=== PATIENT | male | born 1935 | race Caucasian/White ===

== ENCOUNTER → 2017-07-17 | Outpatient (CLI) | payer OTHER | LOC: BMCIMAGING 13:45 | PROVIDERS: ATTEND Emergency Medicine | DX: R51 Headache (principal) ==

== ENCOUNTER 2017-08-29 04:48 | Inpatient (IN) | payer OTHER ==
--- NOTE | 2017-08-29 04:51 | EDPHY ---
H & P Time Seen by Provider: 08/29/17 05:10 HPI/ROS: HPI CHIEF COMPLAINT: Epistaxis HISTORY OF PRESENT ILLNESS: This patient 82-year-old male who was recently went to [facility] evening for epistaxis. He recently had nasal surgery by Dr. Jonny Sylvester. He went to [facility] where they placed a packing. However they had a great deal difficulty controlling his epistaxis. Due to his previous surgery done by ENT here [facility] the patient left [facility], and came by private vehicle to [facility]. He states he started bleeding earlier tonight out of the left Monteiro. And somewhat of the right Monteiro. He had A/P packing placed at outside hospital the left Nare. He continued to bleed at the outside hospital and contacted ENT and they referred him here to our emergency room. Upon arrival he has noted be hemodynamically stable. The patient reports that he lost lot of blood. Intermittently he spits up a clotted blood clot in the posterior pharynx. Patient denies being on any blood thinners. Denies nasal trauma. He states that he had turbinate reduction 1 week ago. Past Medical History: Denies significant medical history Past Surgical History: Recent nasal surgery Social History: Denies drugs alcohol tobacco. Family History: Noncontributory ROS REVIEW OF SYSTEMS: A comprehensive 10 point review of systems is otherwise negative aside from elements mentioned in the history of present illness. Exam Constitutional appears well nontoxic no acute distress triage nursing summary reviewed, vital signs reviewed, awake/alert. Vital signs noted at triage to be hypertensive. Eyes normal conjunctivae and sclera, EOMI, PERRLA. HENT NOSE: Left nose is packed with A/P rhino rocket, on the right Nare: dry blood present, no significant active bleed posterior pharynx there is blood in the posterior pharynx but I do not appreciate any active bleed. moist mucus membranes, no epistaxis, neck supple/ no meningismus, no raccoon eyes. Respiratory clear to auscultation bilaterally, normal breath sounds, no respiratory distress, no wheezing. Cardiovascular rate normal, regular rhythm, no murmur, no edema, distal pulses normal. Gastrointestinal soft, non-tender, no rebound, no guarding, normal bowel sounds, no distension, no pulsatile mass. Genitourinary no CVA tenderness. Musculoskeletal no midline vertebral tenderness, full range of motion, no calf swelling, no tenderness of extremities, no meningismus, good pulses, neurovascularly intact. Skin pink, warm, & dry, no rash, skin atraumatic. Neurologic awake, alert and oriented x 3, AAOx3, moves all 4 extremities equally, motor intact, sensory intact, CN II-XII intact, normal cerebellar, normal vision, normal speech. Psychiatric normal mood/affect. Heme/Lymph/Immune no lymphadenopathy. Differential Diagnosis: Includes but is not limited to in a particular order anterior nose bleed, posterior nosebleed, anterior and posterior nosebleed, nose bleed from recent surgery Medical Decision Making: Plan for this patient will place another packing in his right Monteiro. And observe closely. Check basic blood work H&H. Gentle IV hydration and close monitoring. Will additionally touch base with ENT. Re-evaluation: 0540: Spoke with SHERRON, on-call for ENT. Recommends second Rocket packing. Observation. 0545: I placed a 2nd hacking AP rhino rocket in the right Monteiro. He tolerated this very well. Is secured down. Additionally I ordered Augmentin 875 mg p.o. As he has both rhino rockets in place. Additionally he is receiving gentle IV fluid hydration. I have also ordered him 0.5 mg IV Dilaudid for pain control. He does have a codeine allergy but states he has had IV narcotics in the past. Additionally Zofran for nausea as needed. This patient will be admitted to the hospitalist service for bilateral epistaxis bilateral rhino rockets in place. Reason for admission bilateral rhino rockets in the setting of epistaxis in the setting of recent nasal surgery, the setting of him being 82 years old and having bilateral packing in becoming airway issue. Nosebleed Procedure: The patient had a 7.5 anterior/posterior rhino rocket placed into the right Monteiro. This was inflated with 8 cc of air. He tolerated this very well with security to his cheek. He did put counter pressure on his left anterior packing. He appears at this time to have good hemostasis. He is resting comfortably. No acute distress. After was applied to squirts to the right near prior to the Afrin-soaked rhino rocket. [id number]: Spoke with Tiffanie Banks, will plan on seeing today, [place] for Dr. Jonny Sylvester. Source: Patient, Old records, Other Constitutional: Initial Vital Signs Temperature (C) 36.8 C 08/29/17 04:55 Heart Rate 117 H 08/29/17 04:55 Respiratory Rate 18 08/29/17 04:55 Blood Pressure 179/95 H 08/29/17 04:55 O2 Sat (%) 91 L 08/29/17 04:55 O2 Delivery Mode Room Air Allergies/Adverse Reactions: codeine Allergy (Verified 08/29/17 04:54) Home Medications: Medication Instructions Recorded Aspirin [Aspirin 81mg (*)] 81 mg PO DAILY 08/29/17 Ibuprofen [Motrin (*)] 200 mg PO DAILY PRN 08/29/17 Medical Decision Making - Data Points Laboratory Results: Laboratory Results 08/29/17 05:10 08/29/17 05:10 Medications Given: Amoxicillin/Clavulanate Potassium (Augmentin 875mg) 875 mg PO BID JAYLA PRN Reason: Protocol Stop: 09/28/17 17:59 Last Admin: 08/29/17 20:21 Dose: 875 mg Discontinued Medications Amoxicillin/Clavulanate Potassium (Augmentin 875mg) 875 mg PO EDNOW ONE PRN Reason: Protocol Stop: 08/29/17 05:41 Last Admin: 08/29/17 05:50 Dose: 875 mg Benzocaine (Hurricaine Carnegie) 1 each MM EDNOW ONE Stop: 08/29/17 05:32 Last Admin: 08/29/17 05:33 Dose: 1 each Hydromorphone HCl (Dilaudid) 0.5 mg IVP EDNOW ONE Stop: 08/29/17 05:45 Last Admin: 08/29/17 05:51 Dose: 0.5 mg Sodium Chloride (Ns) 1,000 mls @ 0 mls/hr IV EDNOW ONE; Wide Open PRN Reason: Protocol Stop: 08/29/17 05:08 Last Admin: 08/29/17 05:25 Dose: 1,000 mls Sodium Chloride (Ns) 1,000 mls @ 0 mls/hr IV ONCE ONE PRN Reason: Wide Open Stop: 08/29/17 05:08 Last Admin: 08/29/17 08:57 Dose: Not Given Lorazepam (Ativan) 0.5 mg PO EDNOW ONE Stop: 08/29/17 07:14 Last Admin: 08/29/17 07:36 Dose: 0.5 mg Ondansetron HCl (Zofran) 4 mg IVP EDNOW ONE Stop: 08/29/17 05:46 Last Admin: 08/29/17 05:51 Dose: 4 mg Oxymetazoline HCl (Afrin Nasal Carnegie) 2 sprays EACHNARE EDNOW ONE Stop: 08/29/17 05:19 Last Admin: 08/29/17 05:23 Dose: 2 sprays Departure - Departure Disposition: Footnclls Inpatient Acute Clinical Impression: Epistaxis Condition: Good
[2017-08-29] MEDS ORDERED: NS 1,000 ML IV ONE ×2 (05:07)
[2017-08-29] MEDS ORDERED: OXYMETAZOLINE 30 ML NASAL SPRAY ONE (05:17)
[2017-08-29] MEDS ORDERED: OXYMETAZOLINE 30 ML NASAL SPRAY EACHNARE ONE (05:18)
[2017-08-29 05:23] LABS: PLATELET COUNT 244 10^3/uL (150-400)
[2017-08-29 05:29] LABS: PROTIME(PATIENT) 13.4 SEC (12.0-15.0)
[2017-08-29] MEDS ORDERED: BENZOCAINE UNIT DOSE SPRAY HURRICAINE MM ONE (05:31)
[2017-08-29] MEDS ORDERED: AMOXICILLIN/CLAVULANATE POT 875/125 MG TAB PO ONE (05:40)
[2017-08-29] MEDS ORDERED: HYDROmorphONE/DILAUDID 1 MG/ML INJ IVP ONE (05:44)
[2017-08-29] MEDS ORDERED: ONDANSETRON 4 MG/2 ML VIAL IVP ONE (05:45)
[2017-08-29] MEDS ORDERED: ONDANSETRON 4 MG/2 ML VIAL IVP PRN (06:28)
[2017-08-29] MEDS ORDERED: HYDROmorphONE/DILAUDID 1 MG/ML INJ IVP PRN (06:28)
[2017-08-29] MEDS ORDERED: ACETAMINOPHEN 325 MG TAB PO PRN (06:28)
[2017-08-29] MEDS ORDERED: hydrALAZINE 20 MG/ML VIAL IVP PRN (07:13)
[2017-08-29] MEDS ORDERED: LORazepam 0.5 MG TAB PO ONE (07:13)
[2017-08-29] MEDS ORDERED: LORazepam 2 MG/ML INJ ONE (07:34)
--- NOTE | 2017-08-29 08:02 | GHP ---
[f rep st] HISTORY AND PHYSICAL DATE OF ADMISSION: 08/29/2017 SOURCE: Patient provides history, appears reliable. His EMR was reviewed, and case discussed with E D provider. CHIEF COMPLAINT: Epistaxis. HISTORY OF PRESENT ILLNESS: This is a very pleasant 82-year-old gentleman, with past medical history significant for sinusitis and allergic rhinitis, who presents to the emergency department after begerson g evaluated at [facility] for epistaxis. Patient underwent an outpatient turbinate reduction with Dr Shari Sylvester approximately 1 week ago. Since that time, he reports that he has continued to have some pe rsistent bleeding that was initially minimal. Today, the patient reports that he had a "gushing" and presented to [facility] for evaluation. The patient was noted to have a significant amount of epist axis. A Rhino Rocket was placed in the left naris. The patient continued to have some bleeding, and discussion with on-call for Dr. Sylvester recommended further followup, and [facility] The patient denies any recent trauma other than the procedure a week ago. He has no previo us history of bleeding disorder. He is not on aspirin or any anticoagulants. The patient denies any fevers. No chills. He does report some difficulty with breathing due to both nares now being occlu ded with a Rhino Rocket, as he states he is a nose breather, but denies any dyspnea. No chest pain. No palpitations. Patient does report he has been experiencing some diarrhea for the last 4-5 days a nd has been on amoxicillin preoperatively and on additional antibiotics for sinusitis. REVIEW OF SYSTEMS: Negative except as noted above. ALLERGIES: Codeine. HOME MEDICATIONS: None. PAST MEDICAL HISTORY: Significant for sinusitis. PAST SURGICAL HISTORY: Significant for turbinate reduction, as noted above. Right testicle, appende ctomy, tonsillectomy, adenoidectomy. Also with history of bleeding, bilateral total hip arthroplasty , cataracts extraction with lens placement, hernia repair. FAMILY HISTORY: Patient denies any history of coagulopathy. SOCIAL HISTORY: Patient lives alone. He has friends for support in town. He drinks a few times wee kly. He quit smoking in 2000. He does not use any illicit drugs. CODE STATUS: DNR/DNI. PHYSICAL EXAMINATION: VITAL SIGNS: Upon arrival to the ED, blood pressure 179/95, heart rate is 117 , respiratory rate 18, O2 sat 91% on room air, with a temperature 36.8. Current Vitals: Blood press ure is 148/90, heart rate 103, respiratory rate 18, O2 sats 94% by mask. GENERAL: No acute distress . Very pleasant elderly gentleman who is sitting up in the [facility], appears younger than stated age. HEAD: Normocephalic, atraumatic. EYES: Extraocular muscles grossly intact. No scleral icterus or conjunctival injection. ENT: Mucous membranes appear slightly dry. Patient does have Rhino Rocket s in place bilaterally. There is dried blood around the nares. Dentition intact. NECK: Supple. T rachea midline. CV: Tachycardic with regular rhythm. No murmurs, rubs, or gallops appreciated. RE SPIRATORY: Unlabored breathing. Lungs are clear to auscultation bilaterally, slightly diminished at the bases. Otherwise, no wheezes, rales, or rhonchi. ABDOMEN: Obese, soft, nontender to palpation . No rebound, guarding, or masses appreciated. : No Butcher in place. No suprapubic tenderness to palpation. EXTREMITIES: Patient with trace nonpitting lower extremity edema. 1+ pedal pulses bila terally and symmetric. NEURO: Grossly nonfocal. No facial drooping. Patient is awake, alert, and oriented x4. PSYCH: Patient's thought process, content, and questions are all appropriate. LABORATORY STUDIES: WBC 13.91, H and H 18.2 and 55.0. PT 13.4, INR 1.00, PTT is 36.3. Sodium 143, potassium 4.5, chloride 110, CO2 is 20, anion gap 13, BUN 21, creatinine 0.8. GFR greate r than 60. Glucose 130, calcium 9.2. ASSESSMENT AND PLAN: Pleasant 82-year-old gentleman presents 1 week postoperative from turbinate red uction with increased epistaxis. 1. Epistaxis status post placement of bilateral Rhino Rockets. Dr. Sylvester's office was consulted fr om the emergency department. We will plan to see the patient in the hospital. The patient's bleedin g currently controlled. The patient received a dose of Augmentin in the emergency department. We wi ll plan to continue this. The patient reports he has just recently completed 4-5 days of amoxicillin . Currently afebrile. 2. Leukocytosis is likely reactive. The patient is slightly tachycardic, but he also reports that h e feels like he is having difficulties breathing. 3. Polycythemia is likely secondary to dehydration. Patient did receive intravenous fluids in the e mergency department, and at this time he is able to sip fluids, so we will continue oral hydration. 4. Hyperglycemia. This is nonfasting lab. Patient without any previous history of diabetes. We wi ll continue to monitor and allow for permissive hyperglycemia in this elderly gentleman. 5. Elevated blood pressure without previous history of hypertension. The patient is complaining of some discomfort, with increased breathing. He denies any previous history of other medical problems. We will monitor closely. Hydralazine will be added as needed. The patient is complaining of signi ficant discomfort, related to not so much pain but just the pressure from the Rhino Rockets, and is h aving trouble getting comfortable. He is asking for something to help him relax and sleep. A small dose of Ativan x1 now will be ordered. 6. Fluid electrolyte nutrition status post 1 L of intravenous fluid in the emergency department. El ectrolytes will be monitored and replaced if needed. Diet as tolerated. 7. Prophylaxis: SCDs only, holding anticoagulation in setting of acute bleeding. 8. Code status is [id number], [id number]. Patient reports that he has advance directiv es with his primary care provider. DISPOSITION: Patient has been admitted to observation on the medical floor. Will monitor patient's H and H and vital signs and await ENT recommendations. /[id number]/MODL
--- NOTE | 2017-08-29 13:13 | GCON ---
[f rep st] CONSULTATION DATE OF CONSULTATION: 08/29/2017 CHIEF COMPLAINT: Epistaxis. HISTORY OF PRESENT ILLNESS: This is a very pleasant 82-year-old man who has a past medical history of allergic rhinitis and sinusitis and he has been seeing Dr. Sylvester for this. He had a submucous resection of the inferior turbinates done in the office last Friday. So, he is postop day 7. He states that he has been having a little bit of bleeding ever since. He states sometimes it is a minimal amount, sometimes it seems more. He was seen by Dr. Sylvester actually yesterday afternoon and everything looked good, so he was sent home. He started having a little bit more bleeding after he went home. This stopped and then the presented to [facility] last night for significant bleeding from the left that he could not get to stop. He states that this was gushing, and it seemed like it was going down the back part of his throat. When he placed pressure anteriorly, he does state that it does seem to slow, but he still feels like it gushes down the back. A Rhino Rocket was placed in the left nare. He continued to have some bleeding at [facility]. They felt like he needed to be seen for followup by ENT and he was transferred to [facility]. They wanted to transfer by ambulance, but apparently the patient desired transfer himself so he left on his own. He denies any other recent trauma other than procedure. He has no history of bleeding disorder. He is not on any aspirin or anticoagulants. He denies any fever or chills. Once he was here, he apparently had a Rhino Rocket placed on the right side too because he had some oozing from this side. On entrance to the room today, the right-sided Rhino Rocket was about fpc out of his nose. He has no active bleeding and he has a Rhino Chris on the left side. REVIEW OF SYSTEMS: Are negative except for above noted. ALLERGIES: Codeine. PAST MEDICAL HISTORY: Significant for sinusitis. PAST SURGICAL HISTORY: SMR turbinates, right orchiectomy, appendectomy and T and A. He also has history of bilateral hip surgeries and hernia repair. FAMILY HISTORY: He has no significant family history. EXAM: General: He is awake, alert, in no apparent distress. VITAL SIGNS: He is slightly hypertensive in the 160s systolic, heart rate is normal. Pulse ox is 93% on room air. HEENT: He has a left-sided Rhino Rocket in place that looks to have an anterior and posterior balloon and, in the right side, a Rhino Rocket that has slipped fpc out of the nose. On exam of the oral cavity and oropharynx, he has a clot in the posterior oropharynx, but there is no active new bleeding. NECK: Shows no significant lymphadenopathy or masses. I removed the inflation from the right Rhino Rocket. There was no significant more active bleeding from the nose or oropharynx, so this was removed. The left pack was kept in place. ASSESSMENT AND PLAN: This is a very pleasant 82-year-old man who has a history of some bleeding status post submucous resection turbinate about 7 days ago. I do think that he should be admitted secondary to what looks like an anterior and posterior pack in the left side. I discussed with him that this pack really needs to stay in for at least 2 days. If you take it out too much earlier, you really do not give it any chance to coagulate and clot whatever is bleeding. He has a higher risk of having more bleeding after that, so he agrees. He has already been admitted to the hospitalist service. I have encouraged him not to blow his nose, not to try to hack or cough and sneeze with his mouth open. He agrees and understands to stay overnight. I will come check on him tomorrow sometime likely in the late morning and re-evaluate at that time. Please call if you have any questions. /[id number]/MODL MTDD
--- NOTE | 2017-08-29 14:40 | HOSPPROG ---
Hospitalist Progress Note Assessment/Plan: # severe epistaxis- status post turbinate surgery-rhino rocket x2 placed in the emergency department patient seen by ENT Dr. Murray after arrival -left rhino rocket left in place -oxygen saturations 90% on room air - hemoglobin 18 Facial bone x-ray(personally reviewed and interpreted) no acute fractures - continue close monitoring - CBC in a.m. # tachycardia- suspect multifactorial pain and hypovolemia (with elevated hemoglobin) - fluid bolus - cont to monitor # acute sinusitis- continue Augmentin # prophylaxis contraindicated in the setting of acute epistaxis # diet regular # disposition < 2 midnights as the patient will likely be stable for disposition in the morning and epistaxis subsides I have discussed the case with the RN will continue close monitoring Subjective: Breathing more comfortably 1 rhino rocket removed Objective: Vital Signs Temp Pulse Resp BP Pulse Ox 37.0 C 106 H 18 162/94 H 90 L 08/29/17 12:01 08/29/17 13:36 08/29/17 13:36 08/29/17 13:36 08/29/17 13:36 PT 13.4 SEC (12.0-15.0) 08/29/17 05:10 INR 1.00 (0.83-1.16) 08/29/17 05:10 - Physical Exam Constitutional: no apparent distress Eyes: anicteric sclera Ears, Nose, Mouth, Throat: dry mucous membranes Cardiovascular: No edema Respiratory: no respiratory distress Gastrointestinal: No distension Genitourinary: no bladder fullness Skin: warm Musculoskeletal: No asymmetric calves Neurologic: AAOx3 Psychiatric: interacting appropriately Lymph, Heme, Immunologic: no cervical LAD ICD10 Worksheet Patient Problems: Problems Problem Status Onset Epistaxis Acute
[2017-08-29] MEDS: AMOXICILLIN/CLAVULANATE POT 875/125 MG TAB PO SCH ×2 (17:19→20:21)
[2017-08-30 04:44] LABS: PLATELET COUNT 205 10^3/uL (150-400)
[2017-08-30] MEDS: AMOXICILLIN/CLAVULANATE POT 875/125 MG TAB PO SCH ×2 (08:25→20:04)
--- NOTE | 2017-08-30 10:36 | SOAPPROG ---
SOAP Progress Note Assessment/Plan: Assessment: Pt with epistaxis 1 week s/p SMR turbs with Dr. Sylvester. I reinflated some air in both cuffs. No active bleeding now. Had discussion with patient. Seems to be bleeding around pack and has been bleeding off and on for a week. Rec to OR for nasal endoscopy and eval for source. Possible SPA ligation on the L depending on what I see. Pt agrees. Ate 1 hr ago. Will have to wait 6 hrs unless starts bleeding significantly sooner. He agrees. NPO now Plan: 08/30/17 10:34 Subjective: Pt with epistaxis on the L. Rhinorocket in place. Has been oozing on and off since this am. Seems more down back but has dripped from front. Feels clot in the back of his throat Objective: AFVSS RA Rhinorocket in L Blood in OP though no new blood drippping from RN DISCHARGE clotted blood in R nare Vital Signs Temp Pulse Resp BP Pulse Ox 36.6 C 101 H 17 135/85 H 93 08/30/17 08:30 08/30/17 08:30 08/30/17 08:30 08/30/17 08:30 08/30/17 08:30 Laboratory Results 08/30/17 04:00 08/29/17 08/30/17 08/31/17 05:59 05:59 05:59 Intake Total 900 Output Total 600 Balance 300 PT 13.4 SEC (12.0-15.0) 08/29/17 05:10 INR 1.00 (0.83-1.16) 08/29/17 05:10 ICD10 Worksheet Patient Problems: Problems Problem Status Onset Epistaxis Acute
--- NOTE | 2017-08-30 13:45 | HOSPPROG ---
Hospitalist Progress Note Assessment/Plan: DIAGNOSES: -persistent hemorrhage following nasal turbinates surgery 1 week ago; melenic stools are most likely due to this bleeding -mild tachycardia; unclear cause of this, he is not anemic and is actually hypertensive so do not think it is from blood loss though notably he has been having melanic stools from his bleeding; pain is reasonably controlled, does not at this time look like he is withdrawing from anything PLANS: -continue with current packing with rhino rocket until he goes to OR -he will go to the operating room tonight for exploration, and hopefully definitive surgical management of his bleeding -continue current comfort measures -follow vital signs closely, continue some IV hydration at this moment -recheck hemoglobin be sure he is not becoming anemic SUBJECTIVE: Still with some pain Still bleeding No other symptoms at this moment OBJECTIVE Vitals reviewed: Mildly tachycardic and mildly hypertensive, no fevers or respiratory abnormalities Exam: alert oriented HEENT: skin warm dry color ok resps not labored lungs clear BSs heart regular abd soft nondistended nontender, bowel sounds present limbs warm, no edema iv site ok Laboratory data: Hemoglobin is lower but remains actually high at 16.7 Objective: Vital Signs Temp Pulse Resp BP Pulse Ox 36.6 C 101 H 17 135/85 H 93 08/30/17 08:30 08/30/17 08:30 08/30/17 08:30 08/30/17 08:30 08/30/17 08:30 Laboratory Results 08/30/17 04:00 08/29/17 08/30/17 08/31/17 06:59 06:59 06:59 Intake Total 900 Output Total 600 Balance 300 PT 13.4 SEC (12.0-15.0) 08/29/17 05:10 INR 1.00 (0.83-1.16) 08/29/17 05:10 ICD10 Worksheet Patient Problems: Problems Problem Status Onset Epistaxis Acute
--- NOTE | 2017-08-30 14:31 | PDMN ---
Medical Necessity Medical necessity: C/M review: est. > 2 MN LOS for eval and TX of acute and persistent nasal hemorrhage, melenec stools most likely due to nasal hemorrhage , mild tachycardia requiring rhino rocket nasal packing placement in ED, planned 08/30/2017 surgical intervention, recheck hemoglobin, ongoing frequent vital sign monitoring, pulse oximetry, supplemental O2, preop rhino rocket packing until patient goes to OR, comfort measure, comorbid nasal turbinates surgery 1 week prior to this admission per 08/30/2017 Hospitalist progress note.
[2017-08-30] MEDS ORDERED: MIDAZOLAM 2 MG/2 ML VIAL IVP ONE (15:11)
--- NOTE | 2017-08-30 15:14 | PDANEPAE ---
ANE History of Present Illness electrocautery for epistaxis ANE Past Medical History - Pulmonary History Hx Oxygen in Use at Home: No Hx Sleep Apnea: No - Endocrine History Hx Diabetes: No - Surgical History Prior Surgeries: SMRIT approx 1 week ago ANE Review of Systems Review of systems is: negative Review of Systems: - Exercise capacity Exercise capacity: >=4 METS ANE Patient History - Allergies Allergies/Adverse Reactions: codeine Allergy (Verified 08/29/17 04:54) - Home Medications Home medications: home medication list seen and reviewed Home Medications: Aspirin [Aspirin 81mg (*)] 81 mg PO DAILY 08/29/17 [Last Taken 08/28/17] Ibuprofen [Motrin (*)] 200 mg PO DAILY PRN 08/29/17 [Last Taken Unknown] - Anes Hx Anes Hx: no prior problems - Smoking Hx Smoking Status: Former smoker - Family Anes Hx Family Anes Hx: none ANE Labs/Vital Signs - Labs Result Diagrams: 08/30/17 04:00 08/29/17 05:10 - Vital Signs Blood Pressure: 135/85 Heart Rate: 101 Respiratory Rate: 17 O2 Sat (%): 93 Height: 180.34 cm Weight: 103.6 kg ANE Physical Exam - Airway Neck exam: FROM Mallampati Score: Class 2 Mouth exam: normal dental/mouth exam - Pulmonary Pulmonary: no respiratory distress - Cardiovascular Cardiovascular: regular rate and rhythym - ASA Status ASA Status: II, E ANE Anesthesia Plan Anesthesia Plan: general endotracheal anesthesia (RSI)
[2017-08-30] MEDS ORDERED: PROPOFOL 200 MG/20 ML VIAL ONE (15:19)
[2017-08-30] MEDS ORDERED: fentaNYL 100 MCG/2 ML INJ ONE (15:19)
[2017-08-30] MEDS ORDERED: DEXAMETHASONE 4 MG/ML VIAL ONE (15:19)
[2017-08-30] MEDS ORDERED: ONDANSETRON 4 MG/2 ML VIAL ONE (15:19)
[2017-08-30] MEDS ORDERED: LIDOCAINE 2% 100 MG/5 ML SYR ONE (15:19)
[2017-08-30] MEDS ORDERED: ROCURONIUM 50 MG/5 ML VIAL ONE (15:19)
[2017-08-30] MEDS ORDERED: LIDOCAINE 1% 300 MG/30 ML SDV ONE (15:30)
[2017-08-30] MEDS ORDERED: EPINEPHrine 30 MG/30 ML MDV (0.1 MG/0.1 ML) ONE (15:31)
[2017-08-30] MEDS ORDERED: METHYLENE BLUE 0.5% 50 MG/10 ML AMP ONE (15:31)
[2017-08-30] MEDS ORDERED: MIDAZOLAM 2 MG/2 ML VIAL ONE (15:39)
[2017-08-30] MEDS ORDERED: OXYMETAZOLINE 30 ML NASAL SPRAY ONE (15:44)
[2017-08-30] MEDS ORDERED: LIDO/EPI 2%** Not for Epidural 20 ML MDV ONE (15:44)
[2017-08-30] MEDS ORDERED: SURGIFLO MATRIX KIT WITH THROMBIN 8ml TP ONE (15:46)
[2017-08-30] MEDS ORDERED: ONDANSETRON 4 MG/2 ML VIAL IVP PRN (16:15)
[2017-08-30] MEDS ORDERED: ACETAMINOPHEN 500 MG TAB PO PRN (16:15)
[2017-08-30] MEDS ORDERED: HYDROmorphONE/DILAUDID 1 MG/ML INJ IVP PRN (16:15)
[2017-08-30] MEDS ORDERED: NALOXONE HCL 0.4 MG/ML INJ IVP PRN (16:15)
[2017-08-30] MEDS ORDERED: PROMETHAZINE HCL 25 MG/ML INJ IVP PRN (16:15)
[2017-08-30] MEDS ORDERED: OXYCODONE/APAP 5/325 TAB PO PRN (16:15)
[2017-08-30] MEDS ORDERED: fentaNYL 100 MCG/2 ML INJ IVP PRN (16:15)
[2017-08-30] MEDS ORDERED: HYDROCODONE/APAP 5/325 TAB PO PRN (16:15)
[2017-08-30] MEDS ORDERED: MEPERIDINE 25 MG/ML SYR IVP PRN (16:15)
[2017-08-30] MEDS ORDERED: DEXAMETHASONE 4 MG/ML VIAL IVP PRN (16:15)
--- NOTE | 2017-08-30 16:21 | POSTANESTH ---
Post Anesthetic Evaluation Cardiovascular Status: Similar to Pre-Op Cond Respiratory Status: Normal, Stable, Similar to Pre-op Cond. Level of Consciousness/Mental Status: Can Participate in Eval, Mildly Sleepy, Arousable Pain Control: Adequate, Prn Tx Ordered Nausea/Vomiting Control: Adequate, Prn Tx Ordered Complications Possibly Related to Anesthesia: None Noted
[2017-08-30] MEDS ORDERED: PHENYLEPHRINE HCL 100 MCG/ML SYR ONE ×2 (17:06)
--- NOTE | 2017-08-30 17:26 | POSTOPPROG ---
Post Op Note Date of Operation: 08/30/17 Surgeon: Jami Ortiz Anesthesiologist: Rick Shipman MD Anesthesia: GET(General Endotracheal) Pre-op Diagnosis: epistaxis B Post-op Diagnosis: same Procedure: nasal endoscopy B, cautery of multiple sources, L SPA ligation Findings: oozing from IT B, MT L, trauma post SMR, nl SPA anatomy Inf/Abcess present in the surg proc area at time of surgery?: No Depth: Superfical (Skin SQ) EBL: Minimal Complications: none apparent
--- NOTE | 2017-08-30 21:09 | GOP ---
[f rep st] OPERATIVE REPORT DATE OF OPERATION: 08/30/2017 SURGEON: Jami Ortiz MD ANESTHESIA: General. PREOPERATIVE DIAGNOSIS: Bilateral epistaxis. POSTOPERATIVE DIAGNOSIS: Bilateral epistaxis. PROCEDURE PERFORMED: 1. Nasal endoscopy bilaterally. 2. Cautery of inferior turbinate bilaterally and middle turbinate on the left. 3. Left sphenopalatine artery ligation. FINDINGS: The patient was found to have some generalized oozing in the left nasal cavity. He had a fairly brisk ooze from the head of the middle turbinate on the left. He had some trauma to the inferior turbinates bilaterally secondary to his previous submucous resection of the turbinates a week ago. I was concerned about a possible posterior component so the SPA on the left was ligated. ESTIMATED BLOOD LOSS: Minimal. COMPLICATIONS: None. INDICATIONS: The patient is a very pleasant 82-year-old man who has a history of nasal congestion and sinusitis. He underwent a submucous resection of the inferior turbinates last week by Dr. Sylvester. He states he had been bleeding off and on intermittently throughout the week. He was seen at an outside facility where the left side was packed. He continued to bleed after discharge so then he came to the [facility] ER and was packed by the ER on the right. He was admitted overnight and continued to have bleeding intermittently, and so it was felt he would benefit from the above procedure. DESCRIPTION OF PROCEDURE: The patient was first seen in the preoperative area where informed consent was obtained. He was then brought back to the operating room where Anesthesia sedated and intubated him. The bed was turned 90 degrees. He was prepped and draped in normal fashion. I initially irrigated out the left-sided nasal cavity and then suctioned clear. There was a significant amount of blood clot within the nasal cavity and nasopharynx on this right side. I then used a 0-degree scope to visualize the nasal cavity on the right. He had some trauma of the inferior turbinate along its length. He did have some oozing from the midportion of this. The suction cautery was used to cauterize this area until there was no significant bleeding. At this point, I then placed a 0-degree scope in the nasopharynx through the right and had the chemical engineering technician first deflate the posterior balloon and then anterior balloon. There was no significant active bleeding with these deflated, so the scope was removed, and then the pack was taken out of the left. Once this was done, I then evaluated the left nasal cavity with the scope. He was noted to have some brisk oozing from the middle turbinate head. So, at this point, the head of the middle turbinate was cauterized using suction cautery. He also had an entry wound from the submucous resection done inferiorly, and this was oozing a little bit, so this was cauterized with suction cautery as well. At this point , I was not completely convinced that this was the only area causing the bleeding on the left with that significant ooze from around the pack previously. He had continued to bleed posteriorly even with a posterior pack in , so I was concerned about a posterior source of epistaxis. At this point, I determined I would do a left SPA ligation. I did a greater sphenopalatine block through the oral cavity. A 25-gauge needle was attached to a hand-held syringe. The sphenopalatine foramen was palpated under direct visualization with a 0-degree scope. Once this indention was visualized and palpated, I then brought in the lidocaine; it was 2% lidocaine with 1:100,000 epinephrine. This was placed at the area of the greater palatine foramen, and the needle had been bent at a 45-degree angle. Once I felt this fall into the foramen, I aspirated and did not get back flow of bright red blood, and so about 1 cc of lidocaine with epi was injected into this area. The needle was removed. At this point, I then placed a spinal needle on the same syringe and then, under direct visualization with a 0-degree scope, the area of the face of the sphenoid as well as the basal lamella on the left was injected with about 2 cc of the lidocaine with epi. Once this had sufficient time to act, a U-shaped incision with the sickle knife was used to make our mucosal incision anterior to the sphenopalatine artery. This was started just superior to the insertion of the inferior turbinate. It came anteriorly and then it moved posterior again as I went superiorly. A suction Tatum was then used to elevate the mucosal flap and periosteum off bone, the rosalinda ethmoidalis was visualized, and then I elevated the flap inferiorly and superiorly, noting the sphenopalatine artery extending just posterior to the rosalinda ethmoidalis. The rosalinda was curetted off using the J curette, and once I had better visualization , I then placed 3 ligature clips around the SPA. I then also used bipolar cautery to gently cauterize the area most distal. Once this was done, there was no significant active bleeding. The nasal cavity was irrigated out copiously on both sides with saline and then suctioned clear. There was no more ooze. The flap was placed back in the proper area, and this was covered with Surgicel. I then placed in Surgicel over the areas that I cauterized previously on the middle turbinate and inferior turbinate bilaterally. Once this was done, the patient was then turned back over to Anesthesia, where all instruments were removed, all the pledgets counts were correct. The patient was turned back over to Anesthesia, where he was awoken, extubated, and taken to PACU in stable condition. There were no complications, and he tolerated the procedure well. /[id number]/MODL MTDD
[2017-08-30] MEDS: OXYMETAZOLINE 30 ML NASAL SPRAY EACHNARE PRN (21:59)
--- NOTE | 2017-08-30 23:44 | SOAPPROG ---
SOAP Progress Note Assessment/Plan: Assessment: Pt with epistaxis 1 week s/p SMR turbs with Dr. Sylvester, and POD 0 from nasal endoscopy, cautery and L SPA ligation. He had some bleeding though upon my arrival this had stopped. I suctioned out all the clot and evaluated the NC with scope. I didn't see any overt areas of bleeding. I repacked him with an anterior pack. He did say that when he placed anterior pressure, this slowed and didn't go down the back of his throat. This is very odd that it keeps bleeding, I can't find any other likely sources. I'll keep this pack in about 72 hrs. Will re-evaluate him later tomorrow. If there is no sig bleeding, he could go home with the pack. talked to RN about contacting IM. He is sig tachycardic since surgery, and I'd like him to be evaluated by them for this. BP is normal, very minimally low. Plan: 08/30/17 10:34 08/30/17 23:44 Subjective: Called d/t epistaxis starting on L. Upon arrival, no sig bleeding noted. States it was bleeding worse, just from L. Objective: AF, tachycardic, sats high 90s on RA clot in B nasal cavities Pt brought to my clinic down the [address] with his RN, Raven, and family. Initially I sprayed some lidocaine and afrin into nares bilaterally. I then used the 0 degree scope and a straight suction to clear the B NC of clot I then evaluated the L NC, looking for any active bleeding. I don't see any active bleeding, though see the prev areas of cautery and SPA ligation. I placed some more surgicel over the MT and in MM. I then packed him with a merocel cut to size coated with bacitrain, then covered with a strip of surgicel. I inflated this pack with afrin. He had no further bleeding, i evaluated the COMMERCIAL COORDINATOR with the scope via the R nare. No bleeding from either side into COMMERCIAL COORDINATOR There is no blood in OP. Vital Signs Temp Pulse Resp BP Pulse Ox 36.9 C 106 H 18 132/79 H 97 08/30/17 18:09 08/30/17 23:39 08/30/17 23:39 08/30/17 23:39 08/30/17 23:39 08/29/17 08/30/17 08/31/17 05:59 05:59 05:59 Intake Total 2125 Output Total 150 Balance 1975 PT 13.4 SEC (12.0-15.0) 08/29/17 05:10 INR 1.00 (0.83-1.16) 08/29/17 05:10 ICD10 Worksheet Patient Problems: Problems Problem Status Onset Epistaxis Acute
[2017-08-31] MEDS: NS 1,000 ML IV SCH ×2 (01:21→10:32)
[2017-08-31 04:50] LABS: PLATELET COUNT 199 10^3/uL (150-400)
[2017-08-31] MEDS: AMOXICILLIN/CLAVULANATE POT 875/125 MG TAB PO SCH ×2 (08:49→20:29)
--- NOTE | 2017-08-31 09:49 | HOSPPROG ---
Hospitalist Progress Note Assessment/Plan: DIAGNOSES: -persistent hemorrhage following nasal turbinates surgery 1 week ago, has required 2 surgical procedures for hemostasis during this admission; melenic stools are most likely due to this bleeding -still with tachycardia and now today with more hypoxemia; cause uncertain but he now has some pulmonary rales, question if he might have some atelectasis or CHF, could also be concerned about PE but he does not have chest pain, fever, low blood pressure, leg pain or swelling -history of rhinitis medicamentosa; will need to follow this closely as he is requiring Afrin spray here to treat his post surgical complications and symptoms , he is aware of how this medical issue works and that he will need to somehow get away from the Afrin spray again PLANS: -continue with current packing with rhino rocket; will review with Dr. Mistry -stat chest x-ray right now and I will review that and make further plans regarding his tachycardia and oxygen after that; may need to do imaging evaluation for PE, D-dimer will be of no help -particularly as he is still passing melenic stool will want to continue to follow his hemoglobin which is dropping, do not think he has a GI bleed per se but it would be hard to rule out -continue current comfort measures SUBJECTIVE: Required a 2nd trip back to the operating room last night to stop further bleeding but says he feels notably better since then. He has not noticed any specific bleeding Still passing some melenic stool No shortness of breath, cough, chest pain, leg pain OBJECTIVE Vitals reviewed: Remains Mildly tachycardic 100-107 with good blood pressure, no fevers and respiratory rate is good Using 2-3 L oxygen by OxyMask Exam: alert oriented HEENT: Still with rhino jet in place, no sign of bleeding at this moment skin warm dry color ok resps not labored lungs bibasilar rales are present at this time heart regular abd soft nondistended nontender, bowel sounds present limbs warm, no edema, no exam signs of DVT iv site ok Laboratory data: Hemoglobin decreased slightly but still at 14 rest of CBC okay Renal function and electrolytes are normal I have ordered a chest x-ray which is not done yet Objective: Vital Signs Temp Pulse Resp BP Pulse Ox 37.1 C 107 H 18 122/74 H 92 08/31/17 08:05 08/31/17 08:05 08/31/17 08:05 08/31/17 08:05 08/31/17 08:05 Laboratory Results 08/31/17 04:26 08/31/17 04:26 08/30/17 08/31/17 09/01/17 06:59 06:59 06:59 Intake Total 4450 Output Total 1350 Balance 3100 PT 13.4 SEC (12.0-15.0) 08/29/17 05:10 INR 1.00 (0.83-1.16) 08/29/17 05:10 ICD10 Worksheet Patient Problems: Problems Problem Status Onset Epistaxis Acute
--- NOTE | 2017-08-31 12:26 | SOAPPROG ---
SOAP Progress Note Assessment/Plan: Assessment: Epistaxis: Pt with epistaxis 1 week s/p SMR turbs with Dr. Sylvester, and POD 1 from nasal endoscopy, cautery and L SPA ligation. He had some bleeding again last night, seemed more anteriorly. I cleared out the clot and scoped him in clinic and repacked. Never saw any major source of bleeding. No sig bleeding since pack placed. OP clear. No sig ooze. Labs have been normal from a clotting standpoint. H/H, plts nl today. Planning to leave the L pack in place until Friday. Tachycardia: w/u currently in progress by IM. Consolidation on CXR: Concern for possible pneumonia. Has been tachy since surgery yesterday afternoon. If he is ok from IM standpoint, ok to d.c home from my perspective with packing in place, though I tend to think he needs to stay d/t this new consolidation. Will leave up to Dr. Miranda. On Augmentin, mainly for prophylaxis with packing in place. Ok to change to a different abx if needed. Call with questions [phone] cell Plan: 08/30/17 10:34 08/30/17 23:44 08/31/17 12:23 08/31/17 12:27 Subjective: Doing well, no bleeding since pack placed last night. Not spitting out any blood. No pain. Has continued to be tachycardic though less so. Got CXR this am Objective: AFVSS 3 L oxymask L merocel in place no oozing around pack OP clear of any clot or new blood Vital Signs Temp Pulse Resp BP Pulse Ox 36.8 C 95 20 127/72 H 98 08/31/17 11:25 08/31/17 11:25 08/31/17 11:25 08/31/17 11:25 08/31/17 11:25 Laboratory Results 08/31/17 04:26 08/31/17 04:26 08/30/17 08/31/17 09/01/17 05:59 05:59 05:59 Intake Total 2975 1975 Output Total 1050 425 Balance 1925 1550 PT 13.4 SEC (12.0-15.0) 08/29/17 05:10 INR 1.00 (0.83-1.16) 08/29/17 05:10 ICD10 Worksheet Patient Problems: Problems Problem Status Onset Epistaxis Acute
--- NOTE | 2017-08-31 14:11 | ASMTCMCOM ---
CM Note CM Note Notes: Pt admitted for nose bleed. Anticipate pt will have no DC needs. Date Signed: 08/31/2017 02:10 PM Electronically Signed By:Eileen Aponte LCSW
[2017-09-01] MEDS: NS 1,000 ML IV SCH (08:52)
[2017-09-01] MEDS: AMOXICILLIN/CLAVULANATE POT 875/125 MG TAB PO SCH ×2 (08:54→21:53)
--- NOTE | 2017-09-01 10:20 | HOSPPROG ---
Hospitalist Progress Note Assessment/Plan: DIAGNOSES: -recurrence hemorrhage following nasal turbinates surgery 1 week ago, has required 2 surgical procedures for hemostasis during this admission; melenic stools are most likely due to this bleeding -pneumonia, either community-acquired verses aspiration -tachycardia and hypoxemia, may be related to his pneumonia did not think he has sepsis per se -history of rhinitis medicamentosa; will need to follow this closely as he is requiring Afrin spray here to treat his post surgical complications and symptoms , he is aware of how this medical issue works and that he will need to somehow get away from the Afrin spray again PLANS: -continue with current packing with rhino rocket; -continue current antibiotic -will stop IV fluid at this time -the attempt increase in ambulation today -continue current comfort measures SUBJECTIVE: No significant bleeding overnight Mild discomfort from nasal packing No chills or sweats Does not feel short winded but has not walked further than to his commode Some cough no chest pain OBJECTIVE Vitals reviewed: Remains intermittently tachycardic between 95 and low 100, with good blood pressure, no fevers and respiratory rate is good Using 2-3 L oxygen by OxyMask but during my visit he is actually at 94% on room air Exam: alert oriented HEENT: Still with rhino jet in place, no sign of bleeding at this moment skin warm dry color ok resps not labored lungs bibasilar rales are present at this time heart regular abd soft nondistended nontender, bowel sounds present limbs warm, no edema, no exam signs of DVT iv site ok Objective: Vital Signs Temp Pulse Resp BP Pulse Ox 36.4 C 103 H 17 124/76 H 95 09/01/17 07:57 09/01/17 07:57 09/01/17 07:57 09/01/17 07:57 09/01/17 07:57 Laboratory Results 08/31/17 04:26 08/31/17 04:26 08/31/17 09/01/17 09/02/17 06:59 06:59 06:59 Intake Total 4450 1600 Output Total 1350 275 680 Balance 3100 1325 -680 PT 13.4 SEC (12.0-15.0) 08/29/17 05:10 INR 1.00 (0.83-1.16) 08/29/17 05:10 ICD10 Worksheet Patient Problems: Problems Problem Status Onset Epistaxis Acute
--- NOTE | 2017-09-01 14:40 | SOAPPROG ---
SOAP Progress Note Assessment/Plan: Assessment: Epistaxis: Pt with epistaxis 1 week s/p SMR turbs with Dr. Sylvester, and POD 2 from nasal endoscopy, cautery and L SPA ligation. Has anterior pack in L. No sig bleeding since this was placed on Sat night. Will plan to pull tomorrow, either before d/c or he can see Dr. Sylvester upon d/c from hospital. Tachycardia: Improving. Consolidation on CXR: Concern for possible pneumonia. Seems to be improved, off O2. On Levaquin. Likely d.c tomorrow per patient and this is fine from our standpoint. Call with questions [phone] cell Plan: 08/30/17 10:34 08/30/17 23:44 08/31/17 12:23 08/31/17 12:27 09/01/17 14:37 Subjective: no further bleeding since pack placed Sat. Objective: AFVSS RA crusting R Packing in place l OP clear, no bleeding in OP Vital Signs Temp Pulse Resp BP Pulse Ox 36.4 C 103 H 17 124/76 H 95 09/01/17 07:57 09/01/17 07:57 09/01/17 07:57 09/01/17 07:57 09/01/17 07:57 Laboratory Results 08/31/17 04:26 08/31/17 04:26 08/31/17 09/01/17 09/02/17 05:59 05:59 05:59 Intake Total 2975 3075 Output Total 1050 575 680 Balance 1925 2500 -680 PT 13.4 SEC (12.0-15.0) 08/29/17 05:10 INR 1.00 (0.83-1.16) 08/29/17 05:10 ICD10 Worksheet Patient Problems: Problems Problem Status Onset Epistaxis Acute
[2017-09-01] MEDS: SODIUM CL NASAL 45 ML BTL EACHNARE SCH ×2 (18:58→22:22)
[2017-09-02] MEDS: OXYMETAZOLINE 30 ML NASAL SPRAY EACHNARE PRN (08:41)
[2017-09-02] MEDS: AMOXICILLIN/CLAVULANATE POT 875/125 MG TAB PO SCH (08:42)
[2017-09-02] MEDS: HYDROCODONE/APAP 5/325 TAB PO PRN ×2 (09:07→13:19)
[2017-09-02] MEDS: SODIUM CL NASAL 45 ML BTL EACHNARE SCH (09:13)
--- NOTE | 2017-09-02 11:28 | ASMTCMCOM ---
CM Note CM Note Notes: Met with patient to confirm that he didn't have any discharge needs - he feels good going home today. He is independent and ambulatory and will have a friend come pick him up. Dorian to deliver meds to bedside. Date Signed: 09/02/2017 11:27 AM Electronically Signed By:Saadia Mauro RN
[2017-09-02 13:22] VITALS: BP 131/64; PULSE 96; RESP 17; TEMP 97.7; O2SAT 90
--- NOTE | 2017-09-02 17:40 | PDDCSUM ---
Discharge Summary Discharge Summary: DISCHARGE DIAGNOSES: -recurrent hemorrhage following nasal turbinates surgery -pneumonia, either community-acquired verses aspiration -acute hypoxemia due to above -history of rhinitis medicamentosa; will need to follow this closely as he is requiring Afrin spray here to treat his post surgical complications and symptoms , he is aware of how this medical issue works and that he will need to somehow get away from the Afrin spray again CONSULTANTS: Dr. Oritz of ENT PROCEDURES: 2 surgeries with general anesthesia, the 1st including sphenopalatine artery ligation as well as some cautery of bleeding sites intranasally, the 2nd an exploration and cautery of bleeding sites intranasally HOSPITAL COURSE SUMMARY: This patient came into the hospital with excessive nose bleeding after recent nasal turbinates surgery. He had A rhino jet placed but this was inadequate to control his bleeding. Due to significant ongoing bleeding he returned to the operating room and had ligation of the sphenopalatine artery as he had had a posterior approach to his initial surgery. There is also some cautery done of bleeding sites. This initially seem to give hemostasis but again later that night he had recurrent significant bleeding and was taken back to the operating Room explored and had cautery of several more sites of bleeding. He did not require transfusion. He did have some significant tachycardia but this was not associated with hypotension organ dysfunction. At this time has rhino jet still in place and appears to have good hemostasis and a stable blood count. From standpoint of his bleeding he is stable for discharge to home. In addition to the above the patient did have some hypoxemia and developed a cough and was noted that he had a small area of infiltrate and some rales on examination at the right lower lobe. This again appeared consistent with a small aspiration event and likely occurred during or after 1 of his surgeries but a community-acquired pneumonia could not be ruled out. He was continued on some Augmentin that had been started due to the presence of a hip prosthesis but Levaquin was added to cover strep pneumococcus better and cover atypical community-acquired organisms. His symptoms of pneumonia and hypoxia resolved. At no time did he appear to be septic. There been no other consequences of this. PENDING TEST RESULTS: None MEDICATION CHANGES: Levaquin 750 mg daily for 3 more days, Augmentin 875 mg twice daily 3 more days The patient will be taking Afrin nasal spray p.r.n. For any bleeding, but he understands that he is going to need to continue to otherwise avoid Afrin due to his history of rhinitis medicamentosa FOLLOW-UP PLAN: He will see Dr. Sylvester in clinic in 2-3 days Greater than 35 minutes bedside and care coordination time today
== END 2017-09-02 14:28 | disposition home or self-care (01) | DRG 133 ==
LOC: F1N 12:41 → OBSVTOIN 08-30 14:15
PROVIDERS: ADMIT Family Medicine; ATTEND Family Medicine
PROC: 095L4ZZ Destruction of Nasal Turbinate, Percutaneous Endoscopic Approach (ICD-10-PCS; principal; 2017-08-30 15:45)
PROC: 03L Upper Arteries, Occlusion (ICD-10-PCS; principal; 2017-08-30 15:45)
DX: R04.0 Epistaxis (principal); J18.8 Other pneumonia, unspecified organism; R09.02 Hypoxemia; D75.1 Secondary polycythemia; E86.0 Dehydration; R73.9 Hyperglycemia, unspecified; Z66 Do not resuscitate
CPT/HCPCS: 96374; G0378; J0171; J1100; J1170; J2001; J2060; J2250; J2370; J2405; J2704; J3010; Q9968